=== PATIENT | male | born 1990 | race Caucasian/White ===

== ENCOUNTER 2017-10-08 12:20 | Inpatient (IN) | payer BC, OTHER ==
[2017-10-08] VITALS (17 sets, daily range): BP systolic 94–105; BP diastolic 48–75; PULSE 77–91; RESP 14–21; TEMP 99.6
[~2017-10-08] VITALS: Ht 165.1 cm; Wt 63.2 kg
[~2017-10-08 12:20] MED LIST: ACETAMINOPHEN 1000 MG/100 ML IVPB ONE; KETOROLAC 30 MG INJ ONE; METOCLOPRAMIDE 10 MG INJ ONE; ONDANSETRON 4 MG INJ ONE
--- NOTE | 2017-10-08 14:30 | ERD ---
ER Documentation Chief Complaint Chief Complaint SENT BY DR RICHARD AND IS AN APPY R/O HPI Patient is a 26-year-old male who presents with gradual onset, constant, progressive, dull abdominal pain for 3 days. He states that the pain originally was generalized, but for the last 24 hours has been in the right lower quadrant. He denies fever or vomiting. He denies constipation or diarrhea. He denies back pain. He denies dysuria or hematuria. He went to his PMDs office, and was sent to the ER for evaluation for appendicitis. The patient states that he has had poor appetite and has not eaten since last night. ROS All systems reviewed and are negative except as per history of present illness. Medications Home Meds Reported Medications Sumatriptan Succinate* (Imitrex*) 25 Mg Tablet, 25 MG PO BID Y for MIGRAINE HEADACHE, TAB May repeat after 2 hours if needed; MAX 200 mg/24 hours 10/08/17 Allergies Allergies: Coded Allergies: No Known Allergy (Unverified , 10/08/17) PMhx/Soc Past medical history: None Past surgical history: ORIF of wrist Social history: Drinks occasional alcohol, denies tobacco or illicit drugs FmHx Family History: No coronary disease, No diabetes Physical Exam Vitals Vital Signs Date Time Temp Pulse Resp B/P Pulse Ox O2 Delivery O2 Flow Rate FiO2 10/08/17 18:24 84 11 105/69 100 Room Air 10/08/17 16:29 88 20 119/78 99 Room Air 10/08/17 14:25 77 22 119/78 100 Room Air 10/08/17 12:34 99.6 99 18 116/74 98 Physical Exam Const: Alert, no acute distress Head: Atraumatic Eyes: Normal Conjunctiva, No pallor, no icterus ENT: Normal External Ears, Nose and Mouth. Mucous membranes moist Resp: Clear to auscultation bilaterally, No wheezes, no rales Cardio: Regular rate and rhythm, no murmurs Abd: Soft, Nondistended. Tenderness in the right lower quadrant with mild involuntary guarding. Negative Rovsing sign, negative psoas sign, negative obturator sign. Equivocal rebound tenderness. Skin: No petechiae or rashes Back: No midline or flank tenderness Ext: No cyanosis, or edema Neur: Awake and alert, Cranial nerves II through XII intact bilaterally, strength and sensation full in 4 extremities. Psych: Normal Mood and Affect Result Diagram: 10/08/17 1430 10/08/17 1430 Results 24 hrs Laboratory Tests Test 10/08/17 14:30 10/08/17 14:51 White Blood Count 13.410^3/ul Red Blood Count 5.0210^6/ul Hemoglobin 16.7g/dl Hematocrit 48.1% Mean Corpuscular Volume 95.8fl Mean Corpuscular Hemoglobin 33.3pg Mean Corpuscular Hemoglobin Concent 34.7g/dl Red Cell Distribution Width 11.9% Platelet Count 91913^3/UL Mean Platelet Volume 9.9fl Neutrophils % 77.6% Lymphocytes % 9.4% Monocytes % 11.5% Eosinophils % 0.9% Basophils % 0.4% Nucleated Red Blood Cells % 0.0/100WBC Neutrophils # 10.410^3/ul Lymphocytes # 1.310^3/ul Monocytes # 1.510^3/ul Eosinophils # 0.110^3/ul Basophils # 0.110^3/ul Nucleated Red Blood Cells # 0.010^3/ul Prothrombin Time 13.5Sec Prothrombin Time Ratio 1.1 INR International Normalized Ratio 1.03 Sodium Level 143mmol/L Potassium Level 4.0mmol/L Chloride Level 101mmol/L Carbon Dioxide Level 28mmol/L Anion Gap 18 Blood Urea Nitrogen 8mg/dl Creatinine 0.86mg/dl Glucose Level 91mg/dl Calcium Level 9.6mg/dl Total Bilirubin 2.2mg/dl Direct Bilirubin 0.00mg/dl Indirect Bilirubin 2.2mg/dl Aspartate Amino Transf (AST/SGOT) 22IU/L Alanine Aminotransferase (ALT/SGPT) 28IU/L Alkaline Phosphatase 116IU/L Total Protein 8.2g/dl Albumin 4.8g/dl Globulin 3.40g/dl Albumin/Globulin Ratio 1.41 Urine Color YELLOW Urine Clarity CLEAR Urine pH 6.0 Urine Specific Donner 1.014 Urine Ketones NEGATIVEmg/dL Urine Nitrite NEGATIVEmg/dL Urine Bilirubin NEGATIVEmg/dL Urine Urobilinogen NEGATIVEmg/dL Urine Leukocyte Esterase NEGATIVELeu/ul Urine Hemoglobin NEGATIVEmg/dL Urine Glucose NEGATIVEmg/dL Urine Total Protein NEGATIVEmg/dl Current Medications Medications (Trade) Dose Ordered Sig/Edilberto Route PRN Reason Start Time Stop Time Status Last Admin Dose Admin Ondansetron HCl (Zofran Inj) 4 mg BRIDGE ORDER PRN IV NAUSEA AND/OR VOMITING 10/08/17 16:00 10/08/17 17:20 DC Acetaminophen 650 mg 650 mg ER BRIDGE PRN PO MILD PAIN/FEVER 10/08/17 16:00 10/08/17 17:20 DC Piperacillin Sod/ Tazobactam Sod 50 ml @ 100 mls/hr ONCE ONCE IV 10/08/17 16:00 10/08/17 16:29 DC 10/08/17 15:51 Sodium Chloride 1,000 ml @ 150 mls/hr Q6H40M IV 10/08/17 16:00 10/08/17 17:00 DC 10/08/17 15:52 Potassium Chloride/Dextrose/ Sod Cl (D5-1/2ns + KCl 20 Meq) 1,000 ml @ 100 mls/hr Q10H IV 10/08/17 16:53 10/08/17 17:12 IV Flush (NS 3 ml) 3 ml PER PROTOCOL IV 10/08/17 17:00 Ondansetron HCl (Zofran Inj) 4 mg Q6H PRN IV NAUSEA AND/OR VOMITING 10/08/17 17:00 Morphine Sulfate (morphine) 2 mg Q4H PRN IV SEVERE PAIN LEVEL 7-10 10/08/17 17:00 Procedures/MDM MDM: Patient is a 26-year-old male with 3 days of abdominal pain that has had radiation to the right lower quadrant. He is found to have leukocytosis and low -grade temperature in the ER. He does have mild suggestion of rebound but no kyung peritonitis. Ultrasound shows high suspicion for acute appendicitis. He was made n.p.o., given IV fluids and antibiotics, and will be admitted for appendectomy. Case was discussed with his primary care doctor, Dr. Ambriz, and with a surgeon, Dr. Chu. Departure Diagnosis: Primary Impression: Appendicitis Appendicitis type: acute appendicitis Acute appendicitis type: with localized peritonitis Qualified Code: K35.3 - Acute appendicitis with localized peritonitis Condition: Stable ZULEMA MONROY MD Oct 08, 2017 14:30
[2017-10-08] MEDS ORDERED: SUMA25TA34 PO (14:33)
[2017-10-08 14:40] LABS: ABNORMAL IP MESSAGE 1; BASOPHIL # 0.1 10^3/ul (0.0-0.1); BASOPHILS % 0.4 % (0.0-2.0); EOSINOPHILS # 0.1 10^3/ul (0.0-0.5); EOSINOPHILS % 0.9 % (0.0-7.0); HEMATOCRIT 48.1 % (42.0-52.0); HEMOGLOBIN 16.7 g/dl (14.0-18.0); LYMPHOCYTES # 1.3 10^3/ul (0.8-2.9); LYMPHOCYTES % 9.4 % (15.0-51.0); MEAN CORPUSCULAR HEMOGLOBIN 33.3 pg (29.0-33.0); MEAN CORPUSCULAR HGB CONC 34.7 g/dl (32.0-37.0); MEAN CORPUSCULAR VOLUME 95.8 fl (82.0-101.0); MEAN PLATELET VOLUME 9.9 fl (7.4-10.4); MONOCYTE # 1.5 10^3/ul (0.3-0.9); MONOCYTES % 11.5 % (0.0-11.0); NEUTROPHIL # 10.4 10^3/ul (1.6-7.5); NEUTROPHILS % 77.6 % (39.0-77.0); PLATELET COUNT 319 10^3/UL (140-415); POSITIVE DIFF @See below; RED BLOOD COUNT 5.02 10^6/ul (4.70-6.10); RED CELL DISTRIBUTION WIDTH 11.9 % (11.5-14.5); WHITE BLOOD COUNT 13.4 10^3/ul (4.8-10.8)
[2017-10-08 15:00] LABS: INR 1.03; PROTIME 13.5 Sec (12.2-14.2); PT RATIO 1.1
[2017-10-08 15:02] LABS: ALBUMIN 4.8 g/dl (3.3-4.9); ALBUMIN/GLOBULIN RATIO 1.41; BILIRUBIN,INDIRECT 2.2 mg/dl (0-1.1); BILIRUBIN,TOTAL 2.2 mg/dl (0.2-1.3); CALCIUM 9.6 mg/dl (8.4-10.2); CREATININE 0.86 mg/dl (0.61-1.24); TOTAL PROTEIN 8.2 g/dl (6.1-8.1)
[2017-10-08 15:06] LABS: ADD UMIC NO; UR ASCORBIC ACID NEGATIVE (NEGATIVE); UR BILIRUBIN (Dip) NEGATIVE (NEGATIVE); UR BLOOD (Dip) NEGATIVE (NEGATIVE); UR CLARITY CLEAR (CLEAR); UR COLOR YELLOW (YELLOW); UR GLUCOSE (Dip) NEGATIVE (NEGATIVE); UR KETONES (Dip) NEGATIVE (NEGATIVE); UR LEUKOCYTE ESTERASE (Dip) NEGATIVE Leu/ul (NEGATIVE); UR NITRITE (Dip) NEGATIVE (NEGATIVE); UR SPECIFIC GRAVITY (Dip) 1.014 (1.003-1.030); UR TOTAL PROTEIN (Dip) NEGATIVE (NEGATIVE); UR UROBILINOGEN (Dip) NEGATIVE (NEGATIVE)
--- NOTE | 2017-10-08 15:31 | RADRPT ---
PROCEDURE: Ultrasound right lower quadrant CLINICAL INDICATION: Right lower quadrant pain TECHNIQUE: Axial longitudinal guardado scale images of the right lower quadrant COMPARISON: None FINDINGS: Directed ultrasound examination of the right lower quadrant demonstrates a dilated appendix measurin g 17 mm. There is an appendicolith identified. The findings are most consistent with acute appendici tis in the right clinical setting. No significant free fluid is seen. IMPRESSION: 1. Dilated appendix with appendicolith most consistent with acute appendicitis in the right clinica l setting RPTAT: HH .Adrian Aquino MD, MD Date Time Electronically viewed and signed by .Adrian Aquino MD, on 10/08/2017 15:30 .W/
--- NOTE | 2017-10-08 15:34 | CONS ---
Date/Time of Note Date/Time of Note DATE: 10/08/17 TIME: 15:33 Assessment/Plan Assessment/Plan Additional Assessment/Plan [facility] INPATIENT CONSULTATION NOTE DATE OF SERVICE: 10/08/2017 PLACE OF SERVICE: [facility], emergency department ASSESSMENT AND PLAN: A very-pleasant and fairly healthy 26-year-old gentleman presenting with signs and symptoms consistent with acute appendicitis. I obtained the patient's consent for laparoscopic, possible open appendectomy. With above assessment, I've recommended the followin. To the operating room for above Thank you very much for having me involved in the care of this very pleasant patient and wonderful family. If you have any questions, please feel free to contact me at [phone]. Nature of presenting problem: Moderate to high severity Please note that, given the limited number of diagnoses or management options, the moderate amount and/or complexity of data needed to be reviewed, and moderate risk of complications and/or morbidity or mortality, this qualifies as moderate complexity type of decision-making. Disclaimers: 1. Inadvertent spelling and grammatical errors are likely due to electronic health record (EHR)/dictation software used and do not reflect on the quality of delivered patient care. 2. The electronic timestamp recorded on this note does not necessarily reflect the actual date and time of the visit or the service. 3. Portions of this note may have been created through electronic templates and computer algorithms that might bring in information either from the system or from other physicians and providers. Please note that such information may or may not contain errors, the occurrence of which are outside of my control. In general (but not always) this happens either in the beginning or at the end of the note. The portion of the note that I have created are generally done in 1 continuous block of text, flanked at the beginning and at the end by " ", and entered into one field in the EHR. 4. There may be other unanticipated errors in the note that are outside of my control. I can only attest to the portions of the note that I have created. Updated clinical summary: A very-pleasant and fairly healthy 26-year-old gentleman presenting to the emergency department to [facility] on 10/08/2017 with signs and symptoms consistent with acute appendicitis. Comorbidities: 1. History of ORIF of wrist CONSULTATION REQUESTED BY: Fish Ambriz MD Dear Dr. Ambriz, Thank you very much for the opportunity to participate in the care of this very pleasant gentleman and his wonderful family. HISTORY OF PRESENT ILLNESS: The patient is a very pleasant and otherwise healthy 26-year-old gentleman presenting with 3 day history of abdominal pain that started in the periumbilical region with localization of the right lower quadrant associated with no significant nausea or vomiting or fevers or chills. No prior history of similar pains in the past. No prior surgeries in the past. Patient's workup included white blood cell count of 13,000 and an ultrasound of the right lower quadrant that was consistent with acute appendicitis. No other major complaints during my visit. Patient was accompanied by his . ALLERGIES: NO KNOWN DRUG ALLERGIES MEDICATIONS Documented in the electronic records and reviewed by me. Please see the electronic records for details, as well as details for inpatient medications which were also reviewed by me. SOCIAL HISTORY: The patient lives with family. 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 - Tob; + ETOH (occasional); - IVDU FAMILY HISTORY: There are no significant medical, surgical or oncologic issues in the family as reported by the patient or reflected in the chart. REVIEW OF SYSTEMS: Other than mentioned above, there were no other pertinent positives or pertinent negatives in an otherwise complete 14 point review of systems. PHYSICAL EXAMINATION GENERAL: The patient appears to be a very pleasant of non- descent lying in bed, appearing stated age, and otherwise in no acute distress. BMI: 23.2 VITAL SIGNS: AVSS (please also see auto important data if available as well as the electronic records) HEENT: Normocephalic and atraumatic. Extraocular muscles and hearing are grossly intact bilaterally and symmetrically. Sclerae are nonicteric. Oral cavity is clear; oral mucosa appear to be pink and moist. Dentition: fair. NECK: Supple. There is no lymphadenopathy or JVD. There is no submental, submandibular or supraclavicular lymphadenopathy. CHEST: Rises symmetrically with each breath; patient is breathing comfortably. There are no audible wheezes, rales or rhonchi on the gross exam. HEART: Pulse is regular and palpable on the right wrist. Capillary refill is normal. Carotid pulses are palpable bilaterally and symmetrically in the neck. EXTREMITIES: Lower extremities contain no pitting edema around the ankles bilaterally and symmetrically. ABDOMEN: Abdomen is soft, mild to moderately tender in the right lower quadrant and nondistended. No evidence of ascites, organomegaly, caput medusae , engorged subcutaneous veins, or other abnormalities. There are no peritoneal signs or guarding. SKIN: Appears to be pink and feels warm to touch. NEUROLOGIC: Awake, alert, and follows commands appropriately. LABORATORY DATA: See below IMAGING: See electronic chart. Please note that I've personally reviewed all pertinent available images and I agree in general with their overall reported findings. Consultation Date/Type/Reason Admit Date/Time Social History Smoking Status: Never smoker Exam/Review of Systems Vital Signs Vitals Vital Signs Date Time Temp Pulse Resp B/P Pulse Ox O2 Delivery O2 Flow Rate FiO2 10/08/17 14:25 77 22 119/78 100 Room Air 10/08/17 12:34 99.6 Results Result Diagram: 10/08/17 1430 10/08/17 1430 Results 24 hrs Laboratory Tests Test 10/08/17 14:30 10/08/17 14:51 White Blood Count 13.4 H Red Blood Count 5.02 Hemoglobin 16.7 Hematocrit 48.1 Mean Corpuscular Volume 95.8 Mean Corpuscular Hemoglobin 33.3 H Mean Corpuscular Hemoglobin Concent 34.7 Red Cell Distribution Width 11.9 Platelet Count 319 Mean Platelet Volume 9.9 Neutrophils % 77.6 H Lymphocytes % 9.4 L Monocytes % 11.5 H Eosinophils % 0.9 Basophils % 0.4 Nucleated Red Blood Cells % 0.0 Neutrophils # 10.4 H Lymphocytes # 1.3 Monocytes # 1.5 H Eosinophils # 0.1 Basophils # 0.1 Nucleated Red Blood Cells # 0.0 Prothrombin Time 13.5 Prothrombin Time Ratio 1.1 INR International Normalized Ratio 1.03 Sodium Level 143 Potassium Level 4.0 Chloride Level 101 Carbon Dioxide Level 28 Anion Gap 18 H Blood Urea Nitrogen 8 Creatinine 0.86 Glucose Level 91 Calcium Level 9.6 Total Bilirubin 2.2 H Direct Bilirubin 0.00 Indirect Bilirubin 2.2 H Aspartate Amino Transf (AST/SGOT) 22 Alanine Aminotransferase (ALT/SGPT) 28 Alkaline Phosphatase 116 Total Protein 8.2 H Albumin 4.8 Globulin 3.40 H Albumin/Globulin Ratio 1.41 Urine Color YELLOW Urine Clarity CLEAR Urine pH 6.0 Urine Specific Grethel 1.014 Urine Ketones NEGATIVE Urine Nitrite NEGATIVE Urine Bilirubin NEGATIVE Urine Urobilinogen NEGATIVE Urine Leukocyte Esterase NEGATIVE Urine Hemoglobin NEGATIVE Urine Glucose NEGATIVE Urine Total Protein NEGATIVE RAMESH RYAN M.D. Oct 08, 2017 15:34
[2017-10-08] MEDS ORDERED: ACETAMINOPHEN 325 MG TAB PO PRN (16:00)
[2017-10-08] MEDS ORDERED: PIPER-TAZO 3.375 GM IV (PMX) 50 ML IV ONE (16:00)
[2017-10-08] MEDS ORDERED: SOD CHLORIDE 0.9% 1,000 ML IV SCH (16:00)
[2017-10-08] MEDS ORDERED: ONDANSETRON 4 MG INJ IV PRN ×3 (16:00→22:00)
[2017-10-08] MEDS ORDERED: D5W-0.45 NACL + KCL 20 MEQ 1,000 ML IV SCH (16:53)
[2017-10-08] MEDS ORDERED: morphine 2 MG INJ IV PRN (17:00)
[2017-10-08] MEDS ORDERED: NACL 0.9% 3 ML SYG IV SCH (17:00)
--- NOTE | 2017-10-08 17:29 | HP ---
DATE OF ADMISSION: 10/08/2017 IDENTIFYING DATA: The patient is a 26-year-old male admitted to the hospital with abdominal pain of 48 hours' duration. HISTORICAL EVENTS: It was about 48 hours ago he noted some discomfort involving the right lower nadia drant that seemed to be pretty much constant and, in fact, over the last 12 hours has increased mode stly. Importantly, it did not radiate to the epigastrium, flanks, testicle and was unassociated wit h a change in bowel pattern. He had no symptoms of gastrointestinal bleeding. May have had a sligh t chill yesterday. Appetite has been reduced, and he denied any pathologic symptoms. He has had no cough, wheezing or chest discomfort. MEDICATIONS: Include Imitrex 100 mg as needed p.r.n. migraine headaches. PAST MEDICAL HISTORY: Includes: 1. Migraine headaches. 2. The patient is a vegan. ALLERGIES: NONE. FAMILY HISTORY: Positive for arrhythmia and thyroid issues. 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 He went to [employer]. He does not smoke. PHYSICAL EXAMINATION: GENERAL: [place] male, no acute distress. VITAL SIGNS: BP 111/72, respirations were 18, temp 99.4. EYES: Extraocular muscles were full. NOSE, MOUTH AND THROAT: Normal. NECK: Supple. There was no jugular venous distention, thyroid enlargement or adenopathy. LUNGS: Clear. HEART: Rhythm regular. No murmur. No third or fourth sound. ABDOMEN: Bowel sounds were present. There was 3 to 4+ tenderness in the right lower quadrant with rebound. Liver and spleen were not enlarged. There was no suprapubic discomfort or left lower quad rant tenderness. RECTAL: Not performed. EXTREMITIES: No edema. Pulses 2+. NEUROLOGIC: No lateralizing motor weakness. IMPRESSION: I suspect he has an appendicitis. PLAN: Prompt eval in the ER. A CBC will be needed and CT imaging. Surgery will be consulted. Dictated By: GEM RYAN/VERONIKA Conf#: [id number] DID#: [id number]
--- NOTE | 2017-10-08 17:44 | RADRPT ---
PROCEDURE: XR Chest. CLINICAL INDICATION: Preop evaluation TECHNIQUE: Single AP view of the chest was obtained COMPARISON: None FINDINGS: The heart, lungs and osseous structures are unremarkable. IMPRESSION: No acute disease. RPTAT: EE Tony Dorantes Physician Date Time Electronically viewed and signed by Tony Dorantes, Physician on 10/08/2017 17:44 [place]/
[2017-10-08] MEDS ORDERED: BUPIVACAINE 0.5%/EPI (SDV) 30 ML INJ ONE (20:28)
[2017-10-08] MEDS ORDERED: MIDAZOLAM 1 MG/ML 2 ML INJ ONE (20:55)
[2017-10-08] MEDS ORDERED: PROPOFOL 20 ML ONE (20:55)
[2017-10-08] MEDS ORDERED: FENTAnyl 50 MCG/ML VIAL ONE (20:55)
[2017-10-08] MEDS ORDERED: ROCURONIUM 50 MG INJ ONE (20:55)
[2017-10-08] MEDS ORDERED: ROPIVACAINE 0.2% 20 ML VIAL ONE (20:55)
--- NOTE | 2017-10-08 20:57 | OPR ---
Date/Time of Note Date/Time of Note DATE: 10/08/17 TIME: 20:57 Operative Report Free Text/Dictation [facility] INPATIENT OPERATIVE NOTE PLACE OF SERVICE: [facility] DATE OF SURGERY: 10/08/2017 PREOPERATIVE DIAGNOSIS: 1. Acute appendicitis 2. History of ORIF of wrist POSTOPERATIVE DIAGNOSIS: 1. Acute appendicitis 2. History of ORIF of wrist OPERATION: 1. Laparoscopic appendectomy SURGEON: Ramesh Ryan M.D. POLICY ADVISER: Madhavi ANESTHESIA: General endotracheal tube anesthesia ANESTHESIOLOGIST: Laisha Maciel M.D. BRIEF SUMMARY: An otherwise uncomplicated laparoscopic appendectomy was performed with findings of non-perforated appendicitis. Updated clinical summary: A very-pleasant and fairly healthy 26-year-old gentleman presenting to the emergency department to [facility] on 10/08/2017 with signs and symptoms consistent with acute appendicitis. Comorbidities: 1. History of ORIF of wrist BRIEF HISTORY: The patient is a very pleasant and fairly healthy 26-year-old gentleman presenting to the emergency department to [facility] on 10/08/2017 with signs and symptoms consistent with acute appendicitis. I met with the patient and family and counseled them regarding the possible options of treatment, and I strongly suggested a laparoscopic, possible open appendectomy. We reviewed the operation in detail as well as the risks, benefits, alternatives, and expected outcomes of this operation. After careful consideration of all the risks, benefits, and alternatives, the patient and family appeared to understand those risks and wished to proceed with surgery. For a detailed report of my consultation with patient and family, please refer to my separate consultation note. STATEMENT OF THE INFORMED CONSENT: The patient and family appeared to understand the risks of the operation to include, but not be limited to risk of postoperative pain and scar tissue, possible infection or bleeding requiring other interventions such as opening the wound, placement of drainage catheters, or other operative interventions; possible injury to surrounding to structures including bowel, bladder, bile duct, or blood vessels, or solid organs such as liver, kidney, or pancreas requiring other interventions or procedures; possible leakage of bowel from anastomotic sites or suture lines causing significant increase in morbidity and mortality and requiring multiple interventions including but not limited to, placement of drainage catheters, imaging studies, as well as operative interventions; possible other source of sepsis such as urinary tract infections or pneumonias, or other sources of potentially life threatening problems such as deep venous thrombus formation causing pulmonary embolism, myocardial arrhythmias and infarctions, and even . After careful consideration of all their options, the patient and family appeared to understand and wished to proceed with surgery. DESCRIPTION OF PROCEDURE: After obtaining informed consent, the patient was brought into the operating room and was placed in a normal supine position, where successful general endotracheal tube anesthesia was performed. Intravenous access was already in place and intravenous antimicrobials had been appropriately chosen and dosed prior to the operation. The patient's abdominal skin was prepped and draped from the nipple line down to the level of the upper thighs in the usual sterile fashion. We then called a surgical time-out where the patient's identification, date of , nature of the operation, allergies , presence of intravenous antimicrobials, presence of needed equipment, and any other concerns were reviewed and agreed upon by all members of the operating room team. We then started the operation by placing a 5 mm skin incision in the left lower quadrant and then introduced a 5 mm [employer] trocar into the peritoneal space, visualizing all the layers of the abdominal wall as we entered. Note that there was no indication of any injury to underlying structures with our entry into the peritoneal space. We insufflated the abdominal cavity to a maximum pressure of 15 mmHg and again inspected the area of insertion and ensured no obvious injury to underlying structures prior to inspecting the abdominal cavity and showing no obvious pus, bowel contents, or other abnormal features. We could not see the appendix very well. We, therefore, injected the future sites of our other trocars with 0.5% Marcaine with epinephrine and placed a 5 mm [employer] trocar into the midline suprapubic area, taking care not to injure the bladder. We also placed a 12 mm trocar in the umbilical midline area, all under direct visualization. With our instruments in place, we had excellent visualization and access to the right lower quadrant. We then identified the appendix, which was inflamed but had a normal base coming out of the cecum. It appeared to be adherent to the course of terminal ileum. I then went ahead and used blunt dissection to mobilize the lateral edges of the appendix from the right abdominal wall and to dissect away the appendix from the terminal ileum prior to circumferentially isolating the base of the appendix and then transecting this using one firing of the white load of the Endo-JOSEFA stapler. We also repeated the firing on the mesentery of the appendix and completely disconnected the organ from the colon, delivered this out through the 12 mm trocar site inside of an EndoCatch bag without having to enlarge the fascial defect as well as without contaminating the wound. The specimen was sent to Pathology for further analysis. We then ensured adequate hemostasis and bile stasis, removed all our equipment including the pneumoperitoneum from the abdominal cavity prior to closing the infraumbilical fascia with 1 [id number] 0 Vicryl suture on a UR-6 needle, washing the wounds with copious amounts of normal saline, injecting the initial insertion point of the trocar with 0.5% Marcaine with epinephrine, and then closing the skin using interrupted 4-0 Monocryl sutures. Light dressing was then applied. At the end of the operation, both the sponge count and needle count were reportedly correct x2. The patient tolerated the procedure without any reported complications. ESTIMATED BLOOD LOSS: 5 mL BLOOD OR BLOOD PRODUCT TRANSFUSIONS: None to my knowledge. SPECIMENS: 1. Appendix GRAFTS: None COMPLICATIONS: None. DISPOSITION: Recovery area. Disclaimers: 1. Inadvertent spelling and grammatical errors are likely due to electronic health record (EHR)/dictation software used and do not reflect on the quality of delivered patient care. 2. The electronic timestamp recorded on this note does not necessarily reflect the actual date and time of the visit or the service. 3. Portions of this note may have been created through electronic templates and computer algorithms that might bring in information either from the system or from other physicians and providers. Please note that such information may or may not contain errors, the occurrence of which are outside of my control. In general (but not always) this happens either in the beginning or at the end of the note. The portion of the note that I have created are generally done in 1 continuous block of text, flanked at the beginning and at the end by " ", and entered into one field in the EHR. 4. There may be other unanticipated errors in the note that are outside of my control. I can only attest to the portions of the note that I have created. RAMESH RYAN M.D. Oct 08, 2017 20:57
[2017-10-08] MEDS ORDERED: PHENYLephrine (100 MCG/ML) 5ML SYG ONE (21:11)
[2017-10-08] MEDS ORDERED: PIPER-TAZO 3.375 GM IV (PMX) 50 ML ONE (21:23)
[2017-10-08] MEDS ORDERED: LABETALOL HCL 20MG INJ ONE (21:45)
[2017-10-08] MEDS ORDERED: DIPHENHYDRAMINE 50 MG INJ IV PRN (22:00)
[2017-10-08] MEDS ORDERED: EPHEDrine SULFATE 50 MG/5 ML SYG IV PRN (22:00)
[2017-10-08] MEDS ORDERED: MEPERIDINE 25 MG INJ IV PRN (22:00)
[2017-10-08] MEDS ORDERED: FENTAnyl 50 MCG/ML VIAL IV PRN ×3 (22:00)
[2017-10-08] MEDS ORDERED: HYDROmorphONE (0.2 MG/ML) 10ML SYG IV PRN ×3 (22:00)
[2017-10-08] MEDS ORDERED: METOCLOPRAMIDE 10 MG INJ IV PRN (22:00)
[2017-10-08] MEDS ORDERED: LABETALOL HCL 20MG INJ IV PRN (22:00)
[2017-10-08] MEDS ORDERED: morphine (1 MG/ML) 10ML SYRINGE IV PRN ×3 (22:00)
[2017-10-08] MEDS ORDERED: SUGAMMADEX SODIUM 200 MG/2 ML VIAL IV ONE (22:09)
[2017-10-08] MEDS ORDERED: MEPERIDINE 100 MG INJ ONE (22:21)
[2017-10-08] MEDS ORDERED: BUPIVACAINE 0.5%/EPI 1:200,000 50 ML (MDV) INJ ONE (22:22)
[2017-10-08] MEDS ORDERED: HYDROCODONE/APAP (5/325) TAB PO PRN ×2 (22:30)
[2017-10-08] MEDS ORDERED: NA PHOSPHATE/BIPHOS 133 ML ENEMA PR PRN (22:30)
[2017-10-08] MEDS ORDERED: HYDROmorphONE 1 MG/ML SYG IV PRN (22:30)
[2017-10-08] MEDS ORDERED: BISACODYL 10 MG SUPP PR PRN (22:30)
[2017-10-08] MEDS ORDERED: DOCUSATE SODIUM 100 MG CAP PO PRN (22:30)
[2017-10-08] MEDS ORDERED: HYDROmorphONE 0.5 MG/0.5 ML SYG IV PRN (22:30)
[2017-10-09] VITALS (7 sets, daily range): BP systolic 95–109; BP diastolic 50–65; PULSE 81–88; RESP 16–20; Ht 165.1 cm; Wt 63.2 kg
[2017-10-09 05:39] LABS: ABNORMAL IP MESSAGE 1; BASOPHIL # 0.1 10^3/ul (0.0-0.1); BASOPHILS % 0.4 % (0.0-2.0); EOSINOPHILS % 0.2 % (0.0-7.0); HEMATOCRIT 40.4 % (42.0-52.0); HEMOGLOBIN 13.9 g/dl (14.0-18.0); LYMPHOCYTES # 1.8 10^3/ul (0.8-2.9); LYMPHOCYTES % 15.1 % (15.0-51.0); MEAN CORPUSCULAR HEMOGLOBIN 33.5 pg (29.0-33.0); MEAN CORPUSCULAR HGB CONC 34.4 g/dl (32.0-37.0); MEAN CORPUSCULAR VOLUME 97.3 fl (82.0-101.0); MEAN PLATELET VOLUME 10.6 fl (7.4-10.4); MONOCYTE # 1.6 10^3/ul (0.3-0.9); MONOCYTES % 13.1 % (0.0-11.0); NEUTROPHIL # 8.7 10^3/ul (1.6-7.5); PLATELET COUNT 267 10^3/UL (140-415); POSITIVE DIFF @See below; RED BLOOD COUNT 4.15 10^6/ul (4.70-6.10); RED CELL DISTRIBUTION WIDTH 12.1 % (11.5-14.5); WHITE BLOOD COUNT 12.2 10^3/ul (4.8-10.8)
[2017-10-09 06:12] LABS: CALCIUM 8.9 mg/dl (8.4-10.2); CREATININE 0.83 mg/dl (0.61-1.24); MAGNESIUM 1.6 mg/dl (1.7-2.5); PHOSPHORUS 4.9 mg/dl (2.5-4.9); POTASSIUM 4.1 mmol/L (3.5-5.1)
--- NOTE | 2017-10-09 08:11 | PN ---
Date/Time of Note Date/Time of Note DATE: 10/09/17 TIME: 08:09 Assessment/Plan VTE Prophylaxis VTE Prophylaxis Intervention: other Lines/Catheters IV Catheter Type (from Nrs): Peripheral IV Urinary Cath still in place: No Assessment/Plan Assessment/Plan 1. Doing well post op appendectomy 2. Labs rev 3. Can dc if ok with Surgery Subjective 24 Hr Interval Summary Respiratory: No cough, No shortness of breath Gastrointestinal: other (mild infrumbilical pain), No nausea, No vomiting Genitourinary: no complaints Musculoskeletal: No back pain Exam/Review of Systems Vital Signs Vitals Vital Signs Date Time Temp Pulse Resp B/P Pulse Ox O2 Delivery O2 Flow Rate FiO2 10/09/17 07:28 99.2 94 18 98/53 95 10/09/17 01:59 Room Air 10/08/17 23:00 6.0 Intake and Output 10/08/17 10/08/17 10/09/17 15:00 23:00 07:00 Intake Total 1100 ml 520 ml Output Total 20 ml 600 ml Balance 1080 ml -80 ml Exam Neck: No jvd Respiratory: clear to auscultation Cardiovascular: regular rate and rhythm Gastrointestinal: other, soft, tender (1+ periumbilical pain) Extremities: No edema (and no calf tend) Results Result Diagram: 10/09/17 0452 10/09/17 0452 Results 24 hrs Laboratory Tests Test 10/08/17 14:30 10/08/17 14:51 10/09/17 04:52 White Blood Count 13.4 H 12.2 H Red Blood Count 5.02 4.15 L Hemoglobin 16.7 13.9 L Hematocrit 48.1 40.4 L Mean Corpuscular Volume 95.8 97.3 Mean Corpuscular Hemoglobin 33.3 H 33.5 H Mean Corpuscular Hemoglobin Concent 34.7 34.4 Red Cell Distribution Width 11.9 12.1 Platelet Count 319 267 Mean Platelet Volume 9.9 10.6 H Neutrophils % 77.6 H 71.0 Lymphocytes % 9.4 L 15.1 Monocytes % 11.5 H 13.1 H Eosinophils % 0.9 0.2 Basophils % 0.4 0.4 Nucleated Red Blood Cells % 0.0 0.0 Neutrophils # 10.4 H 8.7 H Lymphocytes # 1.3 1.8 Monocytes # 1.5 H 1.6 H Eosinophils # 0.1 0.0 Basophils # 0.1 0.1 Nucleated Red Blood Cells # 0.0 0.0 Prothrombin Time 13.5 Prothrombin Time Ratio 1.1 INR International Normalized Ratio 1.03 Sodium Level 143 141 Potassium Level 4.0 4.1 Chloride Level 101 103 Carbon Dioxide Level 28 29 Anion Gap 18 H 13 Blood Urea Nitrogen 8 9 Creatinine 0.86 0.83 Glucose Level 91 104 Calcium Level 9.6 8.9 Total Bilirubin 2.2 H Direct Bilirubin 0.00 Indirect Bilirubin 2.2 H Aspartate Amino Transf (AST/SGOT) 22 Alanine Aminotransferase (ALT/SGPT) 28 Alkaline Phosphatase 116 Total Protein 8.2 H Albumin 4.8 Globulin 3.40 H Albumin/Globulin Ratio 1.41 Urine Color YELLOW Urine Clarity CLEAR Urine pH 6.0 Urine Specific [place] 1.014 Urine Ketones NEGATIVE Urine Nitrite NEGATIVE Urine Bilirubin NEGATIVE Urine Urobilinogen NEGATIVE Urine Leukocyte Esterase NEGATIVE Urine Hemoglobin NEGATIVE Urine Glucose NEGATIVE Urine Total Protein NEGATIVE Phosphorus Level 4.9 Magnesium Level 1.6 L Medications Medications Current Medications Ondansetron HCl (Zofran Inj) 4 mg Q6H PRN IV NAUSEA AND/OR VOMITING; Start at 17:00 Acetaminophen/ Hydrocodone Bitart ([place] (5/325)) 1 tab Q4H PRN PO PAIN LEVEL 4 -7 Last administered on 10/09/17t 06:51; Admin Dose 1 TAB; Start 10/08/17 at 22:30 Acetaminophen/ Hydrocodone Bitart ([place] (5/325)) 2 tab Q4H PRN PO PAIN LEVEL 7 -10; Start 10/08/17 at 22:30 Hydromorphone HCl (Dilaudid) 0.5 mg Q2 PRN IV PAIN; Start 10/08/17 at 22:30 Hydromorphone HCl (Dilaudid) 1 mg Q2 PRN IV PAIN; Start 10/08/17 at 22:30 Docusate Sodium (Colace) 100 mg BID PRN PO CONSTIPATION; Start 10/08/17 at 22: 30 Bisacodyl (Dulcolax Supp) 10 mg BID PRN [place] CONSTIPATION; Start 10/08/17 at 22: 30 Sodium Biphosphate/ Sodium Phosphate (Fleet Enema) 133 ml BID PRN [place] CONSTIPATION; Start 11/28/17 at 22:30 Enoxaparin Sodium (Lovenox) 40 mg DAILY SC ; Start 10/09/17 at 09:00 Famotidine (Pepcid) 40 mg HS PO ; Start 10/09/17 at 21:00 GEM FARRIS MD Oct 09, 2017 08:11
[2017-10-09] MEDS ORDERED: ENOXAPARIN 40 MG/0.4 ML SYG SC SCH (09:00)
[2017-10-09] MEDS ORDERED: MAGNESIUM SULFATE 3 GM in DEXTROSE 5% 100 ML IVPB ONE (09:00)
[2017-10-09] MEDS ORDERED: FAMOTIDINE 20 MG TAB PO SCH (21:00)
--- NOTE | 2017-10-09 21:45 | PN ---
Date/Time of Note Date/Time of Note DATE: 10/09/17 TIME: 09:44 Assessment/Plan Lines/Catheters IV Catheter Type (from Nrsg): Saline Lock [place] in Place (from Nrsg): No Assessment/Plan Assessment/Plan [facility] Progress Note Date of Service: 10/09/17 Today's Impression & Plan: Overall doing well post op without major issues. No major wound problems. With above assessment, I've recommended the following for today: 1. Ok to d/c from my standpoint once medically stable 2. D/c instructions: Please call [phone] if any of fever, nausea, vomiting, discharge from wound , wound redness, increase or sudden pain, blood in stool or vomit, or any other unusual signs or symptoms. Also, please call the same number in a few days to schedule an appointment for your follow up visit. Patient may remove dressings tomorrow. Showers OK starting tomorrow. No swimming , hot tub or bath for 2 weeks. No lifting more than 25 lbs for 8 weeks. Nature of presenting problem: High risk Thank you again for your great care of this very pleasant patient and wonderful family. If there are any questions, please feel free to call me at [phone]. Disclaimer: Inadvertent spelling or grammatical errors are likely due to EHR/ dictation software use and do not reflect on the overall quality of patient care. Subjective: No major events or complaints; no major abd pain and under control with medications; no n/v/d; no sob or cp; ? flatus; - BM; + activity Objective: Vitals: See below Exam: GENERAL: On exam, the patient was walking in the hallway with his and appeared to be comfortable and in no acute distress. ABDOMEN: Soft, nontender and nondistended. Incision dressings are clean, dry and intact without any evidence of erythema, edema, discharge, or hernia. There are no peritoneal signs or guarding. SKIN: Skin appears to be pink and feels warm to touch. NEUROLOGIC: Patient is awake, alert, and follows commands appropriately. Exam/Review of Systems Vital Signs Vitals Vital Signs Date Time Temp Pulse Resp B/P Pulse Ox O2 Delivery O2 Flow Rate FiO2 10/09/17 07:28 99.2 94 18 98/53 95 10/09/17 01:59 Room Air 10/08/17 23:00 6.0 Intake and Output 10/08/17 10/08/17 10/09/17 15:00 23:00 07:00 Intake Total 1100 ml 520 ml Output Total 20 ml 600 ml Balance 1080 ml -80 ml Results Result Diagram: 10/09/17 0452 10/09/17 0452 RAMESH RYAN M.D. Oct 09, 2017 21:45
--- NOTE | 2017-10-10 15:12 | RADRPT ---
Vent Rate: 79 bpm RR Interval: 0 msec MN Interval: 168 msec QRS Duration: 86 msec QT Interval: 380 msec QTC Interval: 435 msec P-R-T [place]: 65 - 82 - 65 degrees Normal sinus rhythm Normal ECG Electronically Signed By: Brendan Natarajan [id number]
== END 2017-10-09 14:15 | disposition home or self-care (01) | DRG 343 ==
LOC: E/R 12:20 → REC 15:34 → MS1 10-09 00:39
PROVIDERS: ADMIT Internal Medicine; ATTEND Internal Medicine
PROC: 0DTJ4ZZ Resection of Appendix, Percutaneous Endoscopic Approach (ICD-10-PCS; principal; 2017-10-08 20:00)
DX: K35.80 Unspecified acute appendicitis (principal)
CPT/HCPCS: 36415; 71010; 76705; 80048; 80053; 81003; 83735; 84100; 85025; 85610; 88304; 93005; 96374; J0131; J1650; J1885; J2175; J2250; J2370; J2405; J2543; J2765; J2795; J3010; J3475; J3480; J7030

== ENCOUNTER 2017-11-13 14:15 | Outpatient (CLI) | END 2017-11-13 17:00 | disposition home or self-care (01) ==